=== PATIENT | female | born 1945 | race Caucasian/White ===

== ENCOUNTER 2016-09-19 16:41 | Emergency (ER) | payer MEDICARE, OTHER ==
--- NOTE | ~2016-09-19 | EKG ---
PATIENT: JEFFREY LORENZO UNIT #: [id number] Ventricular Rate: 65 BPM Atrial Rate: 65 BPM P-R Interval: 134 ms QRS Duration: 78 ms Q-T Interval: 418 ms QTC Calculation(Bezet): 434 ms P [place]: 72 degrees Calculated R [place]: 22 degrees Calculated T [place]: 67 degrees Diagnosis Line: Normal sinus rhythm Diagnosis Line: Normal ECG Diagnosis Line: No previous ECGs available Diagnosis Line: Confirmed by BABS MOYA MD ([id number]) on 09/19/2016 Diagnosis Line: 11:08:32 PM INTERPRETING MD: NITA BURNS
--- NOTE | ~2016-09-19 | CR72 ---
[facility] A Service of [facility] & [facility] RADIOLOGY TEXT RESULTS PATIENT: JEFFREY LORENZO LOCATION: [facility] : 47 UNIT #: [id number] AGE: [address]: Wilbur Segal DO SEX: F ORDER DR: [id number] [facility] [address] [place], [place] [address] [id number] E MR#: [id number] Acc #: [id number] NAME: JEFFREY LORENZO. : 1945 SEX: F STUDY DATE/TIME: 09/19/2016 16:38 UNIT: [facility] ROOM: STUDY DESCRIPTION: CR Chest Single View Portable Attending Physician: Wilbur Segal D.O. Ordering Physician: Mateto Ott M.D. Primary Care Physician: Cory Linn II., M.D. MEDICAL IMAGING REPORT This report is preliminary unless electronic signature is present EXAM Portable chest 1 view, 09/19/2016 COMPARISON 07/02/2016 HISTORY Left side weakness and left side pain for 24 hours. FINDINGS No consolidation or effusion or pneumothorax or other acute abnormality. Heart size upper limits normal. Dictated by... Junior Vergara M.D. THIS IS AN ELECTRONICALLY VERIFIED REPORT Junior Vergara M.D. at 09/21/2016 5:07 PM TEV/skylar TD: 09/19/2016 21:10 JOB #: [id number] MEDICAL IMAGING REPORT Page 1 of 1 COPY
--- NOTE | ~2016-09-19 | MR18 ---
[facility] A Service of [facility] RADIOLOGY TEXT RESULTS PATIENT: JEFFREY LORENZO LOCATION: [facility] : 47 UNIT #: [id number] AGE: [address]: Wilbur Segal DO SEX: F ORDER DR: [id number] [facility] [address] [place], [place] [address] [id number] E MR#: [id number] Acc #: [id number] NAME: JEFFREY LORENZO. : 1945 SEX: F STUDY DATE/TIME: 09/19/2016 19:41 UNIT: [facility] ROOM: STUDY DESCRIPTION: MR Brain Wo Contrast Attending Physician: Wilbur Segal D.O. Ordering Physician: Matteo Ott M.D. Primary Care Physician: Cory Linn II., M.D. MRI CENTER REPORT This report is preliminary unless electronic signature is present. EXAM MRI of the brain without contrast HISTORY Left-sided weakness, pain since yesterday, possible CVA. COMPARISON STUDIES Comparison head CT 08/30/2016 FINDINGS Multiplanar multiecho imaging was performed of the brain utilizing a high field magnet and dedicated protocol. Study is degraded due to motion artifact. Axial diffusion weighted imaging was also performed. Examination demonstrates extensive T2 hyperintensity within the right cerebral hemisphere in the distribution of the right middle cerebral artery compatible with an old right MCA distribution infarct. There is chronic-appearing bilateral periventricular white matter changes. Punctate foci of T2 hyperintensity also noted within the right dami. No definite acute infarct is identified as no restricted diffusion is identified. Atrophy particularly within the right cerebral hemisphere supporting a chronic infarct. Overall generalized atrophy. No mass or hemorrhage or mass effect or midline shift. The bony calvarium, skull base mastoid sinuses unremarkable. IMPRESSION 1. Technically degraded study due to motion artifact. 2. Extensive signal abnormality and atrophy within the right middle cerebral artery distribution compatible old right MCA infarct. No definite areas of acute infarct are identified. Also demonstrated is a suspected small right pontine infarct. This also appears chronic as no restricted diffusion noted. [facility] A Service of [facility] RADIOLOGY TEXT RESULTS PATIENT: JEFFREY LORENZO LOCATION: [facility] : 47 UNIT #: [id number] AGE: [address]: Wilbur Segal DO SEX: F ORDER DR: Dictated by... Margot Peraza M.D. THIS IS AN ELECTRONICALLY VERIFIED REPORT Margot Peraza M.D. at 09/20/2016 10:59 PM Joaquin TD: 09/20/2016 00:00 JOB #: [id number] MRI CENTER REPORT Page 1 of 1 COPY
[2016-09-19 17:17] LABS: POC - CKMB 1.5 ng/mL (0.0-7.9); POC - TROPONIN <0.05 ng/mL (<=0.05)
[2016-09-19 17:22] LABS: BASOPHIL% 0.5 % (0-2.5); EOSINOPHIL# 0.2 X10e3 (0-0.7); HEMATOCRIT 42.8 % (35.0-45.0); HEMOGLOBIN 13.9 gm/dL (12.0-16.0); LYMPHOCYTE# 2.4 X10e3 (1.0-3.5); MEAN CELL VOLUME 90.8 FL (83-96); MEAN CORPUSCULAR HEMOGLOBIN 29.6 PG (28-34); MEAN CORPUSCULAR HGB CONC 32.6 g/dL (30-36); MEAN PLATELET VOLUME 10.9 FL (6.5-11.5); MONOCYTE# 0.6 X10e3 (0-1.0); MONOCYTE% 6.4 % (3.0-12.0); NEUTROPHIL# 6.3 X10e3 (1.5-7.1); NEUTROPHIL% 66.1 % (40-75); PLATELET COUNT 185 X10e3 (140-420); RED BLOOD COUNT 4.72 X10e (3.90-5.30); RED CELL DISTRIBUTION WIDTH 14.5 % (11.0-15.5); WHITE BLOOD COUNT 9.6 X10e3 (4.0-10.5)
[2016-09-19 17:27] LABS: DIFF IND NO
[2016-09-19] MEDS ORDERED: VITAMIN D250000 UNIT PO (17:41)
[2016-09-19] MEDS ORDERED: LEVOTHYROXINE88 MCG PO (17:41)
[2016-09-19] MEDS ORDERED: ASPIRIN81 M2 PO (17:42)
[2016-09-19] MEDS ORDERED: NICOTINE TRANSD14 MG TOP (17:42)
[2016-09-19] MEDS ORDERED: CLOPIDOGREL75 MG PO (17:42)
[2016-09-19] MEDS ORDERED: SERTRALINE HCL25 M2 PO (17:43)
[2016-09-19] MEDS ORDERED: ISORDIL40 MG PO (17:43)
[2016-09-19] MEDS ORDERED: LISINOPRIL20 MG PO (17:43)
[2016-09-19] MEDS ORDERED: METOPROLOL TART25 MG PO (17:44)
[2016-09-19] MEDS ORDERED: SYMBICORT INH (17:44)
[2016-09-19] MEDS ORDERED: VIMPAT50 MG PO (17:44)
[2016-09-19 17:45] LABS: ALBUMIN SERUM 3.5 g/dL (3.5-5.0); BILIRUBIN, DIRECT 0.2 mg/dL (0.0-0.2); BILIRUBIN,INDIRECT 0.8 mg/dL (0.0-0.9); CALCIUM SERUM 9.3 mg/dL (8.4-10.2); GLOM FILT RATE Estimated 57.5 mL/min (>60); PROTEIN TOTAL SERUM 6.1 g/dL (6.0-8.3)
[2016-09-19] MEDS ORDERED: DOCUSATE SODIU100 MG PO (17:45)
[2016-09-19] MEDS ORDERED: FLORASTOR PO (17:46)
[2016-09-19] MEDS ORDERED: SENNA8.6 M1 PO (17:46)
[2016-09-19 17:47] LABS: PARTIAL THROMBOPLASTIN TIME 24.4 SECONDS (23.5-31.3); PROTHROMBIN TIME (PATIENT) 10.5 SECONDS (9.6-11.5)
[2016-09-19] MEDS ORDERED: NEURONTIN100 MG PO (17:47)
[2016-09-19] MEDS ORDERED: ATORVASTATIN CA80 MG PO (17:47)
[2016-09-19] MEDS ORDERED: ALPRAZOLAM0.25 MG PO (17:48)
[2016-09-19] MEDS ORDERED: CULTURELLE CHE1 EACH PO (17:48)
[2016-09-19] MEDS ORDERED: GLUCAGEN1 MG IM (17:50)
[2016-09-19] MEDS ORDERED: ALBUTEROL17 GM INH (17:51)
[2016-09-19] MEDS ORDERED: PHENERGAN25 MG PO (17:51)
[2016-09-19] MEDS ORDERED: TYLENOL325 M1 PO (17:51)
[2016-09-19] MEDS ORDERED: TYLENOL #3 PO (17:52)
[2016-09-19] MEDS ORDERED: MILK OF MAGNESIA PO (17:52)
[2016-09-19] MEDS ORDERED: HEMMOREX-HC25 MG PR (17:54)
[2016-09-19] MEDS ORDERED: GLYCERIN1 EACH PR (17:55)
[2016-09-19 18:07] LABS: URINE APPEARANCE CLEAR; URINE BILIRUBIN NEG (NEG); URINE BLOOD NEG (NEG); URINE COLOR YELLOW; URINE GLUCOSE NEG (NEG); URINE KETONE TRACE (NEG); URINE LEUKOCYTE ESTERASE NEG (NEG); URINE NITRATE NEG (NEG); URINE PROTEIN 2+ (NEG); URINE SPECIFIC GRAVITY 1.023 (1.003-1.035); URINE UROBILINOGEN 0.2 MG/DL (NEG)
[2016-09-19 18:09] LABS: U HYALINE CASTS AUWI 0-2 /[LPF]; URBCS1 AUWI 0-2 /[HPF] (0-2); URINE BACTERIA AUWI NEG (NEGATIVE); URINE SQUAMOUS EPITHELIAL CELL OCC /[HPF]; UWBCS1 AUWI 0-2 (0-5)
[2016-09-19 18:13] LABS: CULTURE INDICATED? NO
[2016-09-19 20:26] LABS: URINE SOURCE CLEAN CATCH
== END 2016-09-20 00:28 ==
LOC: CED 16:41
PROVIDERS: Emergency Medicine
DX: S05.02XA Injury of conjunctiva and corneal abrasion without foreign body, left eye, initial encounter (principal); R53.1 Weakness; Z86.73 Personal history of transient ischemic attack (TIA), and cerebral infarction without residual deficits; F17.200 Nicotine dependence, unspecified, uncomplicated; X58.XXXA Exposure to other specified factors, initial encounter; Y92.9 Unspecified place or not applicable
CPT/HCPCS: 36415; 51701; 70551; 71010; 80048; 80076; 81003; 82553; 82947; 84484; 85025; 85610; 85730; 93005; 96361; 96374; 99284; J2060

== ENCOUNTER 2016-09-21 13:08 | Emergency (ER) | payer MEDICARE, OTHER ==
--- NOTE | ~2016-09-21 | CT71 ---
[facility] A Service of [facility] RADIOLOGY TEXT RESULTS PATIENT: JEFFREY LORENZO LOCATION: [facility] : 49 UNIT #: [id number] AGE: [address]: Solo Gonzalez MD SEX: F ORDER DR: [id number] [facility] [address] [place], [place] [address] [id number] E MR#: [id number] Acc #: [id number] NAME: JEFFREY LORENZO. : 1945 SEX: F STUDY DATE/TIME: 09/21/2016 12:36 UNIT: [facility] ROOM: STUDY DESCRIPTION: CT Head Wo Contrast Attending Physician: Solo Gonzalez M.D. Ordering Physician: Solo Gonzalez M.D. Primary Care Physician: [facility] IMAGING REPORT This report is preliminary unless electronic signature is present EXAM Contrast CT head. DATE: 09/21/2016 HISTORY Fell out of wheelchair and left side of head today. Pain on the left side of head radiating to left shoulder today. Diabetes. Hypertension. Previous stroke. History of seizures. COMPARISON Noncontrast CT head 08/30/2016. MRI brain 09/19/2016. The CT exam was performed with one or more of the following radiation dose reduction techniques: automatic exposure control, adjustment of mA and/or kV according to patient size, and iterative reconstruction. FINDINGS Extensive encephalomalacic changes are demonstrated throughout the right frontal, parietal and temporal lobe consistent with old extensive right MCA territory infarct. There are no new hypodensities, no evidence of new or progressive infarct. Periventricular white matter hypodensities consistent with chronic microvascular disease. Mild generalized atrophy. Prominence of the ventricles and extraaxial space is unchanged. Chronic microvascular disease in the dami and midbrain, unchanged. No displaced calvarial fracture. Major paranasal sinuses, mastoid air cells are clear. 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 Mild intracranial carotid artery calcifications. IMPRESSION 1. Extensive right hemispheric encephalomalacia consistent with remote MCA territory infarct, with scattered areas of chronic microvascular disease elsewhere within the brain. [facility] A Service of [facility] & [facility] RADIOLOGY TEXT RESULTS PATIENT: JEFFREY LORENZO LOCATION: [facility] : 49 UNIT #: [id number] AGE: [address]: Solo Gonzalez MD SEX: F ORDER DR: 2. No acute intracranial findings. 3. Generalized atrophy. 4. No significant change compared to 08/30/2016. Dictated by... Tiffani Grier M.D. THIS IS AN ELECTRONICALLY VERIFIED REPORT Tiffani Grier M.D. at 09/22/2016 7:[address] [facility]/gerri TD: 09/21/2016 14:22 JOB #: [id number] MEDICAL IMAGING REPORT Page 1 of 1 COPY
--- NOTE | ~2016-09-21 | CT52 ---
[facility] A Service [facility] RADIOLOGY TEXT RESULTS PATIENT: JEFFREY LORENZO LOCATION: [facility] : 49 UNIT #: [id number] AGE: [address]: Solo Gonzalez MD SEX: F ORDER DR: [id number] [facility] [address] [place], [place] [address] [id number] E MR#: [id number] Acc #: [id number] NAME: JEFFREY LORENZO. : 1945 SEX: F STUDY DATE/TIME: 09/21/2016 12:36 UNIT: [facility] ROOM: STUDY DESCRIPTION: CT Cervical Spine Wo Cont Attending Physician: Solo Gonzalez M.D. Ordering Physician: Solo Gonzalez M.D. Primary Care Physician: [facility], [facility], [facility]. MEDICAL IMAGING REPORT This report is preliminary unless electronic signature is present REVISED REPORT EXAMINATION CT cervical spine without contrast. DATE 09/21/2016 HISTORY 71-year-old female who fell out of wheelchair today and hit left side of the head. Left head pain radiating to the left shoulder today. COMPARISON No prior CT cervical spine at this institution for comparison. Correlation is made to CTA head and neck, stroke protocol, 08/30/2016. PROCEDURE 2 mm noncontrast axial images through the cervical spine. Sagittal and coronal reformatted images were obtained. This CT exam was performed with one or more of the following radiation dose reduction techniques: automatic exposure control, adjustment of mA and/or kV according to patient size, and iterative reconstruction. FINDINGS No acute cervical spine fracture or subluxation is seen. The craniocervical junction is intact. Mild diminished disc height is present at C5-6. At C2-3, there is small posterior disc protrusion, which barely indents the thecal sac. No high-grade canal stenosis is seen. There is mild left facet arthropathy with mild left neural foraminal narrowing. At C3-4, there is moderate left facet arthropathy and mild left STS. [facility] A Service of [facility] RADIOLOGY TEXT RESULTS PATIENT: JEFFREY LORENZO [id number] 49 UNIT #: [id number] AGE: [address]: Solo Gonzalez MD SEX: F ORDER DR: uncovertebral spurring. Mild left neural foraminal narrowing. No significant canal stenosis. At C4-5, there is severe left facet arthropathy and left uncovertebral spurring. Mild right facet arthropathy and uncovertebral spurring. There is severe left neural foraminal narrowing. Mild right neural foraminal narrowing. Minimal canal stenosis. At C6-7, left paracentral disc osteophyte formation is seen indenting and probably deforming the anterior margin of the cervical spinal cord. There is moderate left, mild right facet arthropathy, mild left neural foraminal narrowing. At C6-7, there is mild bilateral facet arthropathy, but no significant canal or foraminal stenosis is appreciated. At C7-T1, no significant disc bulge, canal or foraminal stenosis is seen. Imaged superior mediastinum appears within normal limits. IMPRESSION 1. No acute cervical spine fracture or subluxation. 2. Multilevel degenerative changes of the cervical spine as described in detail in the report. The most significant level is thought to be at C5-6 where there is left paracentral disc osteophyte formation, which appears to indent and deform the anterior cervical spinal cord. There is also suspected severe left side neural foraminal narrowing at C4-5 and to a lesser degree at C5-6 due to the presence of facet arthropathy and uncovertebral spurring. Dictated by... Tiffani Grier M.D. THIS IS AN ELECTRONICALLY VERIFIED REPORT Tiffani Grier M.D. at 09/22/2016 7:04 AM [facility]/noni TD: 09/21/2016 14:16 JOB #: [id number] CC: Mathew/madisonision Please Delete MEDICAL IMAGING REPORT Page 1 of 1 COPY
--- NOTE | ~2016-09-21 | CR229 ---
[facility] A Service of [facility] & [facility] RADIOLOGY TEXT RESULTS PATIENT: JEFFREY LORENZO LOCATION: [facility] : 49 UNIT #: [id number] AGE: [address]: Solo Gonzalez MD SEX: F ORDER DR: [id number] [facility] [address] [place], [place] [address] [id number] E MR#: [id number] Acc #: [id number] NAME: JEFFREY LORENZO. : 1945 SEX: F STUDY DATE/TIME: 09/21/2016 12:09 UNIT: [facility] ROOM: STUDY DESCRIPTION: CR Shoulder Min 2 View Lt Attending Physician: Solo Gonzalez M.D. Ordering Physician: Solo Gonzalez M.D. Primary Care Physician: [facility], [facility]. MEDICAL IMAGING REPORT This report is preliminary unless electronic signature is present EXAM Left shoulder 3 views 09/21/2016 12:09 p.m. COMPARISON No correlative studies. HISTORY History sheet states pain in left shoulder began today after falling out of wheel chair on left side. FINDINGS Bones appear demineralized. No fracture or dislocation is noted. AC joint is unremarkable. Left thorax is within normal limits. IMPRESSION 1. No acute abnormality. Dictated by... Marilynn Garcia M.D. THIS IS AN ELECTRONICALLY VERIFIED REPORT Marilynn Garcia M.D. at 09/22/2016 8:45 AM MARK/silva TD: 09/21/2016 14:01 JOB #: [id number] MEDICAL IMAGING REPORT Page 1 of 1 COPY
[~2016-09-21 13:08] MED LIST: ALBUTEROL17 GM INH; ALPRAZOLAM0.25 MG PO; ASPIRIN81 M2 PO; ATORVASTATIN CA80 MG PO; CLOPIDOGREL75 MG PO; CULTURELLE CHE1 EACH PO; DOCUSATE SODIU100 MG PO; FLORASTOR PO; GLUCAGEN1 MG IM; GLYCERIN1 EACH PR; HEMMOREX-HC25 MG PR; ISORDIL40 MG PO; LEVOTHYROXINE88 MCG PO; LISINOPRIL20 MG PO; METOPROLOL TART25 MG PO; MILK OF MAGNESIA PO; NEURONTIN100 MG PO; NICOTINE TRANSD14 MG TOP; PHENERGAN25 MG PO; SENNA8.6 M1 PO; SERTRALINE HCL25 M2 PO; SYMBICORT INH; TYLENOL #3 PO; TYLENOL325 M1 PO; VIMPAT50 MG PO; VITAMIN D250000 UNIT PO
== END 2016-09-21 16:23 | disposition short-term general hospital (02) ==
LOC: CED 13:08
DX: S13.4XXA Sprain of ligaments of cervical spine, initial encounter (principal); S00.93XA Contusion of unspecified part of head, initial encounter; S40.012A Contusion of left shoulder, initial encounter; W01.198A Fall on same level from slipping, tripping and stumbling with subsequent striking against other object, initial encounter; Y92.129 Unspecified place in nursing home as the place of occurrence of the external cause
CPT/HCPCS: 70450; 72125; 73030; 99284

== ENCOUNTER 2016-10-10 21:36 | Emergency (ER) | payer MEDICARE, OTHER ==
--- NOTE | ~2016-10-10 | CR229 ---
[facility] A Service of [facility] & [facility] RADIOLOGY TEXT RESULTS PATIENT: JEFFREY LORENZO LOCATION: [facility] : 49 UNIT #: [id number] AGE: [address]: Austin Marsh MD SEX: F ORDER DR: [id number] [facility] [address] [place], [place] [address] [id number] E MR#: [id number] Acc #: [id number] NAME: JEFFREY LORENZO. : 1945 SEX: F STUDY DATE/TIME: 10/10/2016 21:08 UNIT: [facility] ROOM: STUDY DESCRIPTION: CR Shoulder Min 2 View Lt Attending Physician: Austin Marsh M.D. Ordering Physician: Austin Marsh M.D. Primary Care Physician: [facility], [facility]. MEDICAL IMAGING REPORT This report is preliminary unless electronic signature is present EXAM Left shoulder HISTORY Shoulder pain after fall 5 days ago FINDINGS Three views of the left shoulder are compared with 09/21/16 No fracture or dislocation is seen. There is no AC joint separation. There is some mild AC joint arthropathy. IMPRESSION Mild AC joint arthropathy. No acute findings in the shoulder. Dictated by... Solo Shirley Jr., M.D. THIS IS AN ELECTRONICALLY VERIFIED REPORT Solo Shirley Jr., M.D. at 10/10/2016 10:45 PM SAMUEL/david TD: 10/10/2016 22:40 JOB #: [id number] MEDICAL IMAGING REPORT Page 1 of 1 COPY
--- NOTE | ~2016-10-10 | CR93 ---
[facility] A Service of [facility] & [facility] RADIOLOGY TEXT RESULTS PATIENT: JEFFREY LORENZO LOCATION: [facility] : 49 UNIT #: [id number] AGE: [address]: Austin Marsh MD SEX: F ORDER DR: [id number] [facility] [address] [place], [place] [address] [id number] E MR#: [id number] Acc #: [id number] NAME: JEFFREY LORENZO. : 1945 SEX: F STUDY DATE/TIME: 10/10/2016 21:06 UNIT: [facility] ROOM: STUDY DESCRIPTION: CR Elbow Min 3 Views Lt Attending Physician: Austin Marsh M.D. Ordering Physician: Austin Marsh M.D. Primary Care Physician: [facility], [facility]. MEDICAL IMAGING REPORT This report is preliminary unless electronic signature is present EXAM Left elbow, 10/10 INDICATIONS Elbow pain for the last 5 days after a fall. FINDINGS 3 views of the left elbow were obtained. There is a small olecranon spur. No acute fracture or malalignment is seen. There is no joint effusion. IMPRESSION Small olecranon spur, otherwise negative left elbow. Dictated by... Solo Shirley Jr., M.D. THIS IS AN ELECTRONICALLY VERIFIED REPORT Solo Shirley Jr., M.D. at 10/10/2016 10:45 PM SAMUEL/louie TD: 10/10/2016 22:42 JOB #: [id number] MEDICAL IMAGING REPORT Page 1 of 1 COPY
== END 2016-10-10 22:00 | disposition home or self-care (01) ==
LOC: CED 21:36
DX: S46.912A Strain of unspecified muscle, fascia and tendon at shoulder and upper arm level, left arm, initial encounter (principal); S50.02XA Contusion of left elbow, initial encounter; I10 Essential (primary) hypertension; E11.9 Type 2 diabetes mellitus without complications; Z86.73 Personal history of transient ischemic attack (TIA), and cerebral infarction without residual deficits; W18.30XA Fall on same level, unspecified, initial encounter; Y92.009 Unspecified place in unspecified non-institutional (private) residence as the place of occurrence of the external cause
CPT/HCPCS: 73030; 73080; 99284